=== PATIENT | male | born 1945 | race Caucasian/White ===

== ENCOUNTER 2017-08-01 18:45 | Inpatient (IN) ==
[2017-08-01] MEDS ORDERED: SODIUM CHLORIDE 0.9% 1,000 ML IV STA ×2 (19:04→21:18)
[2017-08-01 20:05] LABS: Basophils % 0.3 % (0.0-0.8); Eosinophils # 0.1 10*3/uL (0.0-0.87); Eosinophils % 0.5 % (0.00-10.9); Hematocrit 48.5 VOL% (42.0-52.0); Hemoglobin 16.3 GM/DL (14.0-18.0); Immature Granulocytes % 0.7 %; Immature Granulocytes Absolute 0.08 #; Lymphocytes # 0.8 10*3/uL (1.4-4.0); Lymphocytes % 6.9 % (21.2-54.2); Mean Corpuscular HGB Conc 33.6 GM/DL (32-36); Mean Corpuscular Hemoglobin 27 PG (27-34); Mean Corpuscular Volume 81.4 FL (87-102); Mean Platelet Volume 12.3 FL (9.6-12.0); Monocytes # 0.8 10*3/uL (0.11-0.8); Monocytes % 7.2 % (1.7-12.7); Neutrophils # 9.5 10*3/uL (1.4-7.4); Neutrophils % 84.4 % (38.7-73.9); Platelet Count 96 T/CUMM (130-400); Red Blood Count 5.96 MC/CUMM (3.8-5.5); Red Cell Distribution Width 14.2 % (9.3-17.3); White Blood Count 11.3 T/CUMM (4-12)
[2017-08-01 20:30] LABS: Platelet Estimate Decreased
[2017-08-01 20:34] LABS: Bilirubin,Total 0.9 MG/DL (0.2-1.0); Calcium 9.4 MG/DL (8.5-10.1); Lactic Acid 1.9 MMOL/L (0.4-2.0); Osmolality,Calculated 281.5 MOS/KG (273-304); Potassium 4.9 MMOL/L (3.5-5.1); Total Protein 7.4 G/DL (6.4-8.3)
[2017-08-01 20:35] LABS: Troponin I Only 0.047 NG/ML (0.00-0.045)
[2017-08-01] MEDS ORDERED: ONDANSETRON 4 MG/2 ML VIAL IV PRN (21:28)
[2017-08-01] MEDS ORDERED: DEXTROSE 50% 25 GM/50 ML VIAL IV PRN (21:28)
[2017-08-01] MEDS ORDERED: GLUCAGON 1 MG VIAL IM PRN (21:28)
[2017-08-01 23:03] LABS: Apearance,Urine CLEAR (Clear); Bacteria,Urine Occasional /HPF (Few); Bilirubin,Urine Negative (Negative); Blood, Urine Moderate mg/dL (Negative); Glucose,Urine (UA) 50 mg/dL (Negative); Hyaline Casts,Urine 2 /LPF (0-3); Ketones,Urine 20 mg/dL (Negative); Mucus,Urine Occasional /LPF (Occasional); Nitrite,Urine Negative (Negative); Protein,Urine 100 MG/DL; RBC,Urine 8 /HPF (0-4); Squamous Epithelial Cell,Urine Occasional /HPF (0-10); Urine Color Yellow (Yellow); Urine Urobilinogen < 2.0 EU/DL (0.2-1.0)
[2017-08-01] MEDS: INSULIN LISPRO 100 UNIT/ML SUBCUT SCH (23:08)
[2017-08-01] MEDS: SODIUM CHLORIDE 0.9% 1,000 ML IV SCH (23:45)
[2017-08-02 01:12] LABS: Basophils % 0.1 % (0.0-0.8); Eosinophils # 0.1 10*3/uL (0.0-0.87); Eosinophils % 1.1 % (0.00-10.9); Hematocrit 43.8 VOL% (42.0-52.0); Hematocrit 45.1 VOL% (42.0-52.0); Hemoglobin 14.6 GM/DL (14.0-18.0); Hemoglobin 14.9 GM/DL (14.0-18.0); Immature Granulocytes % 0.4 %; Immature Granulocytes % 1.5 %; Immature Granulocytes Absolute 0.04 #; Immature Granulocytes Absolute 0.14 #; Lymphocytes # 1.1 10*3/uL (1.4-4.0); Lymphocytes % 11.4 % (21.2-54.2); Mean Corpuscular HGB Conc 33.3 GM/DL (32-36); Mean Corpuscular Hemoglobin 28 PG (27-34); Mean Corpuscular Volume 83.1 FL (87-102); Mean Platelet Volume 11.2 FL (9.6-12.0); Mean Platelet Volume 11.5 FL (9.6-12.0); Monocytes # 0.8 10*3/uL (0.11-0.8); Monocytes # 0.9 10*3/uL (0.11-0.8); Monocytes % 8.8 % (1.7-12.7); Monocytes % 8.9 % (1.7-12.7); Neutrophils # 7.2 10*3/uL (1.4-7.4); Neutrophils # 7.5 10*3/uL (1.4-7.4); Neutrophils % 77.2 % (38.7-73.9); Neutrophils % 78.1 % (38.7-73.9); Platelet Count 132 T/CUMM (130-400); Platelet Count 142 T/CUMM (130-400); Red Blood Count 5.27 MC/CUMM (3.8-5.5); Red Blood Count 5.37 MC/CUMM (3.8-5.5); Red Cell Distribution Width 13.6 % (9.3-17.3); Red Cell Distribution Width 13.8 % (9.3-17.3); White Blood Count 9.2 T/CUMM (4-12); White Blood Count 9.7 T/CUMM (4-12)
[2017-08-02 01:31] LABS: % Iron Saturation 19.7 % (18-50); Ferritin 448.3 ng/ml (26-388)
[2017-08-02 01:46] LABS: Calcium 8.8 MG/DL (8.5-10.1); Osmolality,Calculated 289.7 MOS/KG (273-304); Potassium 4.4 MMOL/L (3.5-5.1); Thyroid Stimulating Hormone 0.692 uIU/ml (0.358-3.74)
[2017-08-02 02:36] LABS: Sedimentation Rate-Westergren 45 MM/HR (0-20)
[2017-08-02 05:01] LABS: Folate 9.7 NG/ML (5.4-24.0); Vitamin B12 714 PG/ML (211-911)
[2017-08-02 05:46] LABS: Hepatitis A Ab IgM Quant 0.18 Index; Hepatitis A Ab IgM Result Negative (Negative); Hepatitis B Core IgM Result Negative (Negative); Hepatitis B Surface Ag Quant < 0.10 Index; Hepatitis B Surface Ag Result Negative (Negative); Hepatitis C Virus Ab Quant 0.15 Index; Hepatitis C Virus Ab Result Negative (Negative)
[2017-08-02] MEDS: INSULIN LISPRO 100 UNIT/ML SUBCUT SCH ×4 (07:11→20:01)
[2017-08-02] MEDS: SODIUM CHLORIDE 0.9% 1,000 ML IV SCH ×2 (07:35→16:34)
[2017-08-02] MEDS: PANTOPRAZOLE 40 MG TABLET PO SCH (08:58)
[2017-08-02] MEDS: hydrALAZINE 20 MG/1 ML VIAL IV PRN (13:09)
[2017-08-02] MEDS: ACETAMINOPHEN 325 MG TABLET PO PRN (14:30)
[2017-08-03 08:25] LABS: Basophils % 0.3 % (0.0-0.8); Eosinophils # 0.3 10*3/uL (0.0-0.87); Eosinophils % 3.8 % (0.00-10.9); Hematocrit 39.4 VOL% (42.0-52.0); Hemoglobin 13.6 GM/DL (14.0-18.0); Immature Granulocytes % 0.8 %; Immature Granulocytes Absolute 0.05 #; Lymphocytes # 1.1 10*3/uL (1.4-4.0); Lymphocytes % 15.8 % (21.2-54.2); Mean Corpuscular HGB Conc 34.5 GM/DL (32-36); Mean Corpuscular Hemoglobin 28 PG (27-34); Mean Corpuscular Volume 81.7 FL (87-102); Mean Platelet Volume 11.6 FL (9.6-12.0); Monocytes # 0.6 10*3/uL (0.11-0.8); Monocytes % 9.6 % (1.7-12.7); Neutrophils # 4.7 10*3/uL (1.4-7.4); Neutrophils % 69.7 % (38.7-73.9); Platelet Count 110 T/CUMM (130-400); Red Blood Count 4.82 MC/CUMM (3.8-5.5); Red Cell Distribution Width 13.7 % (9.3-17.3); White Blood Count 6.7 T/CUMM (4-12)
[2017-08-03] MEDS: INSULIN LISPRO 100 UNIT/ML SUBCUT SCH ×4 (08:42→20:38)
[2017-08-03 09:01] LABS: Calcium 8.2 MG/DL (8.5-10.1); Osmolality,Calculated 281.7 MOS/KG (273-304); Potassium 3.1 MMOL/L (3.5-5.1)
[2017-08-03] MEDS: PANTOPRAZOLE 40 MG TABLET PO SCH (09:06)
[2017-08-03] MEDS: SODIUM CHLORIDE 0.9% 1,000 ML IV SCH (09:10)
[2017-08-03] MEDS: amLODIPine 5 MG TABLET PO SCH (12:30)
[2017-08-03] MEDS ORDERED: TUBERCULIN SKIN TEST 0.1 ML SYRINGE INTRADERM ONE (13:23)
[2017-08-03] MEDS: VANCOMYCIN INJ 1,500 MG in SODIUM CHLORIDE 0.9% 500 ML IV SCH (17:14)
[2017-08-04 06:10] LABS: Basophils % 0.4 % (0.0-0.8); Eosinophils # 0.3 10*3/uL (0.0-0.87); Hematocrit 37.6 VOL% (42.0-52.0); Hemoglobin 12.9 GM/DL (14.0-18.0); Immature Granulocytes % 0.6 %; Immature Granulocytes Absolute 0.04 #; Lymphocytes % 13.8 % (21.2-54.2); Mean Corpuscular HGB Conc 34.3 GM/DL (32-36); Mean Corpuscular Hemoglobin 28 PG (27-34); Monocytes # 0.7 10*3/uL (0.11-0.8); Monocytes % 9.5 % (1.7-12.7); Neutrophils % 71.7 % (38.7-73.9); Platelet Count 102 T/CUMM (130-400); Red Blood Count 4.64 MC/CUMM (3.8-5.5); Red Cell Distribution Width 13.8 % (9.3-17.3)
[2017-08-04 06:20] LABS: Calcium 7.8 MG/DL (8.5-10.1); Osmolality,Calculated 282.5 MOS/KG (273-304); Potassium 2.9 MMOL/L (3.5-5.1)
[2017-08-04] MEDS ORDERED: MAGNESIUM SULF RIDER 4 GM in PREMIX 1 EACH IV PRN (06:26)
[2017-08-04] MEDS ORDERED: MAGNESIUM SULF RIDER 2 GM in PREMIX 1 EACH IV PRN (06:26)
[2017-08-04] MEDS: POTASSIUM CHLORIDE 20 MEQ TABLET PO PRN ×3 (06:37→13:35)
[2017-08-04] MEDS: INSULIN LISPRO 100 UNIT/ML SUBCUT SCH ×4 (07:46→21:11)
[2017-08-04] MEDS: SODIUM CHLORIDE 0.9% 1,000 ML IV SCH (09:00)
[2017-08-04] MEDS: PANTOPRAZOLE 40 MG TABLET PO SCH (09:00)
[2017-08-04] MEDS: amLODIPine 5 MG TABLET PO SCH (09:00)
[2017-08-04] MEDS: ACETAMINOPHEN 325 MG TABLET PO PRN (09:01)
[2017-08-04] MEDS: hydrALAZINE 20 MG/1 ML VIAL IV PRN (13:27)
[2017-08-04] MEDS ORDERED: POTASSIUM CHLORIDE 20 MEQ TABLET PO ONE (14:00)
[2017-08-04] MEDS ORDERED: TUBERCULIN SKIN TEST 0.1 ML SYRINGE INTRADERM ONE (15:30)
[2017-08-04] MEDS: amLODIPine 10 MG TABLET PO SCH (16:00)
[2017-08-04] MEDS: MULTIVITAMIN (CENTRUM) TABLET PO SCH (16:00)
[2017-08-04] MEDS: VANCOMYCIN INJ 1,500 MG in SODIUM CHLORIDE 0.9% 500 ML IV SCH (16:00)
[2017-08-04] MEDS: LISINOPRIL 10 MG TABLET PO SCH (16:00)
[2017-08-04] MEDS: FERROUS SULFATE 325 MG TABLET PO SCH ×2 (16:00→21:10)
[2017-08-04] MEDS: TAMSULOSIN 0.4 MG CAPSULE PO SCH (21:10)
[2017-08-05] MEDS: ACETAMINOPHEN 325 MG TABLET PO PRN (05:03)
[2017-08-05 06:57] LABS: Basophils % 0.3 % (0.0-0.8); Eosinophils # 0.2 10*3/uL (0.0-0.87); Eosinophils % 2.5 % (0.00-10.9); Hematocrit 37.6 VOL% (42.0-52.0); Hemoglobin 12.7 GM/DL (14.0-18.0); Immature Granulocytes % 0.5 %; Immature Granulocytes Absolute 0.03 #; Lymphocytes # 0.7 10*3/uL (1.4-4.0); Lymphocytes % 11.9 % (21.2-54.2); Mean Corpuscular HGB Conc 33.8 GM/DL (32-36); Mean Corpuscular Hemoglobin 28 PG (27-34); Mean Corpuscular Volume 82.5 FL (87-102); Mean Platelet Volume 11.5 FL (9.6-12.0); Monocytes # 0.6 10*3/uL (0.11-0.8); Monocytes % 9.8 % (1.7-12.7); Neutrophils # 4.4 10*3/uL (1.4-7.4); Platelet Count 120 T/CUMM (130-400); Red Blood Count 4.56 MC/CUMM (3.8-5.5); Red Cell Distribution Width 13.8 % (9.3-17.3); White Blood Count 5.9 T/CUMM (4-12)
[2017-08-05 07:27] LABS: Calcium 8.1 MG/DL (8.5-10.1); Osmolality,Calculated 285.7 MOS/KG (273-304)
[2017-08-05] MEDS: INSULIN LISPRO 100 UNIT/ML SUBCUT SCH ×4 (09:04→22:22)
[2017-08-05] MEDS: amLODIPine 10 MG TABLET PO SCH (09:05)
[2017-08-05] MEDS: POTASSIUM CHLORIDE 20 MEQ TABLET PO SCH (09:05)
[2017-08-05] MEDS: MULTIVITAMIN (CENTRUM) TABLET PO SCH (09:05)
[2017-08-05] MEDS: FERROUS SULFATE 325 MG TABLET PO SCH ×2 (09:05→21:01)
[2017-08-05] MEDS: LISINOPRIL 10 MG TABLET PO SCH (09:05)
[2017-08-05] MEDS: TAMSULOSIN 0.4 MG CAPSULE PO SCH ×2 (09:06→21:01)
[2017-08-05] MEDS: PANTOPRAZOLE 40 MG TABLET PO SCH (09:06)
[2017-08-05 10:40] LABS: Hemoglobin A1 (Alkaline) 97.9 % (96.5-98.5); Hemoglobin A2 (Alkaline) 2.1 % (1.5-3.5)
[2017-08-05] MEDS ORDERED: cefTRIAXone 1,000 MG in SYRINGE 1 EACH IV SCH (13:00)
[2017-08-05 19:23] LABS: Folate 7.9 NG/ML (5.4-24.0)
[2017-08-05] MEDS: VANCOMYCIN INJ 1,500 MG in SODIUM CHLORIDE 0.9% 500 ML IV SCH (21:00)
[2017-08-05] MEDS: MEMANTINE 5 MG TABLET PO SCH (21:01)
[2017-08-06 07:22] LABS: Basophils % 0.5 % (0.0-0.8); Eosinophils # 0.2 10*3/uL (0.0-0.87); Eosinophils % 2.9 % (0.00-10.9); Hematocrit 38.8 VOL% (42.0-52.0); Hemoglobin 12.9 GM/DL (14.0-18.0); Immature Granulocytes % 0.7 %; Immature Granulocytes Absolute 0.04 #; Lymphocytes # 1.1 10*3/uL (1.4-4.0); Lymphocytes % 17.5 % (21.2-54.2); Mean Corpuscular HGB Conc 33.2 GM/DL (32-36); Mean Corpuscular Hemoglobin 28 PG (27-34); Mean Corpuscular Volume 83.1 FL (87-102); Monocytes # 0.6 10*3/uL (0.11-0.8); Monocytes % 10.3 % (1.7-12.7); Neutrophils # 4.2 10*3/uL (1.4-7.4); Neutrophils % 68.1 % (38.7-73.9); Platelet Count 133 T/CUMM (130-400); Red Blood Count 4.67 MC/CUMM (3.8-5.5); Red Cell Distribution Width 14.3 % (9.3-17.3); White Blood Count 6.1 T/CUMM (4-12)
[2017-08-06] MEDS: TAMSULOSIN 0.4 MG CAPSULE PO SCH ×2 (08:58→20:40)
[2017-08-06] MEDS: ASPIRIN EC 81 MG TABLET PO SCH (08:58)
[2017-08-06] MEDS: amLODIPine 10 MG TABLET PO SCH (08:59)
[2017-08-06] MEDS: PANTOPRAZOLE 40 MG TABLET PO SCH (08:59)
[2017-08-06] MEDS: LISINOPRIL 10 MG TABLET PO SCH (08:59)
[2017-08-06] MEDS: INSULIN LISPRO 100 UNIT/ML SUBCUT SCH ×4 (08:59→20:44)
[2017-08-06] MEDS: MEMANTINE 5 MG TABLET PO SCH ×2 (08:59→20:40)
[2017-08-06] MEDS: FERROUS SULFATE 325 MG TABLET PO SCH ×2 (08:59→20:40)
[2017-08-06] MEDS: MULTIVITAMIN (CENTRUM) TABLET PO SCH (08:59)
[2017-08-06] MEDS: POTASSIUM CHLORIDE 20 MEQ TABLET PO SCH (08:59)
[2017-08-06] MEDS: metFORMIN 500 MG TABLET PO SCH (10:35)
[2017-08-06] MEDS ORDERED: glyBURIDE 2.5 MG TABLET PO SCH (17:00)
[2017-08-06] MEDS: VANCOMYCIN INJ 1,500 MG in SODIUM CHLORIDE 0.9% 500 ML IV SCH (20:41)
[2017-08-07] MEDS: amLODIPine 10 MG TABLET PO SCH (09:45)
[2017-08-07] MEDS: ASPIRIN EC 81 MG TABLET PO SCH (09:45)
[2017-08-07] MEDS: MULTIVITAMIN (CENTRUM) TABLET PO SCH (09:45)
[2017-08-07] MEDS: metFORMIN 500 MG TABLET PO SCH (09:45)
[2017-08-07] MEDS: MEMANTINE 5 MG TABLET PO SCH ×2 (09:45→20:31)
[2017-08-07] MEDS: PANTOPRAZOLE 40 MG TABLET PO SCH (09:45)
[2017-08-07] MEDS: TAMSULOSIN 0.4 MG CAPSULE PO SCH ×2 (09:45→20:31)
[2017-08-07] MEDS: LISINOPRIL 10 MG TABLET PO SCH (09:46)
[2017-08-07] MEDS: FERROUS SULFATE 325 MG TABLET PO SCH ×2 (09:46→20:31)
[2017-08-07] MEDS: POTASSIUM CHLORIDE 20 MEQ TABLET PO SCH (09:46)
[2017-08-07] MEDS: INSULIN LISPRO 100 UNIT/ML SUBCUT SCH ×4 (09:46→20:31)
[2017-08-07] MEDS ORDERED: SKIN HEALING OINT (AQUAPHOR) 50 GM TUBE TOP PRN (15:39)
[2017-08-07] MEDS: VANCOMYCIN INJ 1,500 MG in SODIUM CHLORIDE 0.9% 500 ML IV SCH (20:31)
[2017-08-08] MEDS: MEMANTINE 5 MG TABLET PO SCH (09:11)
[2017-08-08] MEDS: MULTIVITAMIN (CENTRUM) TABLET PO SCH (09:11)
[2017-08-08] MEDS: TAMSULOSIN 0.4 MG CAPSULE PO SCH (09:11)
[2017-08-08] MEDS: amLODIPine 10 MG TABLET PO SCH (09:11)
[2017-08-08] MEDS: LISINOPRIL 10 MG TABLET PO SCH (09:11)
[2017-08-08] MEDS: PANTOPRAZOLE 40 MG TABLET PO SCH (09:11)
[2017-08-08] MEDS: ACETAMINOPHEN 325 MG TABLET PO PRN (09:12)
[2017-08-08] MEDS: POTASSIUM CHLORIDE 20 MEQ TABLET PO SCH (09:12)
[2017-08-08] MEDS: metFORMIN 500 MG TABLET PO SCH (09:12)
[2017-08-08] MEDS: FERROUS SULFATE 325 MG TABLET PO SCH (09:12)
[2017-08-08] MEDS: INSULIN LISPRO 100 UNIT/ML SUBCUT SCH ×2 (09:13→12:02)
[2017-08-08] MEDS: ASPIRIN EC 81 MG TABLET PO SCH (09:13)
[2017-08-08 12:04] VITALS: BP 172/96
== END 2017-08-08 12:15 | DRG 683 ==
LOC: EDUNIT# → EDBD → N.ED 18:45 → N.EDINP 21:27 → SUATTDRO 21:27 → N.5E 23:06
PROVIDERS: ADMIT Internal Medicine; ATTEND Internal Medicine Infectious Disease

== ENCOUNTER 2017-10-27 10:11 | Inpatient (IN) ==
[2017-10-27] MEDS ORDERED: CLINDAMYCIN INJ 600 MG in PREMIX 1 EACH IV STA (10:40)
[2017-10-27] MEDS ORDERED: SODIUM CHLORIDE 0.9% 500 ML IV STA (10:40)
[2017-10-27 10:47] LABS: Basophils # 0.1 10*3/uL (0.0-0.2); Basophils % 0.8 % (0.0-0.8); Eosinophils # 0.3 10*3/uL (0.0-0.87); Hematocrit 26.7 VOL% (42.0-52.0); Hemoglobin 8.7 GM/DL (14.0-18.0); Immature Granulocytes % 0.8 %; Immature Granulocytes Absolute 0.05 #; Lymphocytes # 0.9 10*3/uL (1.4-4.0); Lymphocytes % 15.3 % (21.2-54.2); Mean Corpuscular HGB Conc 32.6 GM/DL (32-36); Mean Corpuscular Hemoglobin 27 PG (27-34); Mean Corpuscular Volume 84.2 FL (87-102); Mean Platelet Volume 9.6 FL (9.6-12.0); Monocytes # 0.7 10*3/uL (0.11-0.8); Neutrophils % 67.1 % (38.7-73.9); Platelet Count 244 T/CUMM (130-400); Red Blood Count 3.17 MC/CUMM (3.8-5.5); Red Cell Distribution Width 14.3 % (9.3-17.3)
[2017-10-27 11:08] LABS: Lactic Acid 0.9 MMOL/L (0.4-2.0)
[2017-10-27 11:21] LABS: Alanine Aminotransferase 17 U/L (16-61); Alkaline Phosphatase 69 U/L (45-117); Aspartate Amino Transferase 13 U/L (0-37); Bilirubin,Total < 0.39 MG/DL (0.2-1.0); Total Protein 6.7 G/DL (6.4-8.3)
[2017-10-27 11:22] LABS: Blood Urea Nitrogen 49 MG/DL (7-18); Glucose 315 MG/DL (74-106); Osmolality,Calculated 288.5 MOS/KG (273-304); Potassium 3.5 MMOL/L (3.5-5.1); Sodium 132 MMOL/L (136-145)
[2017-10-27] MEDS ORDERED: cefTRIAXone 250 MG VIAL IM STA (11:44)
[2017-10-27] MEDS ORDERED: NICOTINE 21 MG/24 HR PATCH TRANSDERM PRN (12:00)
[2017-10-27] MEDS ORDERED: BISACODYL 5 MG TABLET PO PRN (12:00)
[2017-10-27] MEDS ORDERED: ONDANSETRON 4 MG/2 ML VIAL IV PRN (12:00)
[2017-10-27] MEDS ORDERED: PROMETHAZINE 25 MG/1 ML VIAL IM PRN (12:00)
[2017-10-27] MEDS ORDERED: GLUCAGON 1 MG VIAL IM PRN (12:04)
[2017-10-27] MEDS ORDERED: DEXTROSE 50% 25 GM/50 ML VIAL IV PRN (12:04)
[2017-10-27] MEDS ORDERED: ALBUTEROL 2.5 MG/3 ML NEB RESP TX PRN (12:05)
[2017-10-27 12:06] LABS: Amorphous Crystals,Urine Occasional /HPF (Few); Apearance,Urine Slightly Hazy (Clear); Bilirubin,Urine Negative (Negative); Blood, Urine Moderate mg/dL (Negative); Glucose,Urine (UA) >=500 mg/dL (Negative); Ketones,Urine Negative (Negative); Nitrite,Urine Negative (Negative); Protein,Urine >=500 MG/DL; RBC,Urine 23 /HPF (0-4); Urine Color Yellow (Yellow); Urine Specific Gravity 1.005 (1.001-1.035); Urine Urobilinogen < 2.0 EU/DL (0.2-1.0)
[2017-10-27] MEDS ORDERED: cefTRIAXone 1,000 MG in SODIUM CHLORIDE 0.9% 100 ML IV STA (12:07)
[2017-10-27] MEDS ORDERED: hydrALAZINE 20 MG/1 ML VIAL IV STA (12:22)
[2017-10-27] MEDS: ALBUTEROL/IPRATROPIUM 3 ML NEB RESP TX SCH ×2 (13:31→19:27)
[2017-10-27] MEDS ORDERED: VANCOMYCIN INJ 1,500 MG in SODIUM CHLORIDE 0.9% 500 ML IV PRN (13:34)
[2017-10-27] MEDS: SODIUM CHLORIDE 0.9% 1,000 ML IV SCH ×2 (13:57→20:30)
[2017-10-27] MEDS: PIPERACILLIN/TAZOBACTAM 3,375 MG in SODIUM CHLORIDE 0.9% 100 ML IV SCH ×2 (14:00→22:39)
[2017-10-27] MEDS: ENOXAPARIN 30 MG/0.3 ML SYRINGE SUBCUT SCH (14:00)
[2017-10-27] MEDS: INSULIN REGULAR 100 UNIT/ML SUBCUT SCH ×2 (15:49→21:31)
[2017-10-27] MEDS ORDERED: hydrALAZINE 20 MG/1 ML VIAL IV PRN (16:14)
[2017-10-27 16:31] LABS: Folate 10.3 NG/ML (5.4-24.0)
[2017-10-27] MEDS ORDERED: VANCOMYCIN INJ 2,250 MG in SODIUM CHLORIDE 0.9% 500 ML IV ONE (18:00)
[2017-10-27 18:05] LABS: Protein/Creatinine Ratio,Urine 9.8 RATIO
[2017-10-27] MEDS ORDERED: INSULIN GLARGINE 100 UNIT/ML SUBCUT SCH (21:00)
[2017-10-27] MEDS: amLODIPine 5 MG TABLET PO SCH (21:19)
[2017-10-27] MEDS: guaiFENesin/DM ER 600-30 MG TABLET PO SCH (21:19)
[2017-10-27] MEDS: INSULIN GLARGINE 100 UNIT/ML SUBCUT SCH (21:32)
[2017-10-28] MEDS: ALBUTEROL/IPRATROPIUM 3 ML NEB RESP TX SCH ×4 (01:29→19:23)
[2017-10-28] MEDS: PIPERACILLIN/TAZOBACTAM 3,375 MG in SODIUM CHLORIDE 0.9% 100 ML IV SCH ×3 (06:16→22:14)
[2017-10-28 07:30] LABS: Basophils # 0.1 10*3/uL (0.0-0.2); Basophils % 0.7 % (0.0-0.8); Eosinophils # 0.3 10*3/uL (0.0-0.87); Eosinophils % 4.5 % (0.00-10.9); Hematocrit 26.4 VOL% (42.0-52.0); Hemoglobin 8.6 GM/DL (14.0-18.0); Immature Granulocytes % 0.4 %; Immature Granulocytes Absolute 0.03 #; Lymphocytes # 0.9 10*3/uL (1.4-4.0); Lymphocytes % 13.8 % (21.2-54.2); Mean Corpuscular HGB Conc 32.6 GM/DL (32-36); Mean Corpuscular Hemoglobin 28 PG (27-34); Mean Corpuscular Volume 84.6 FL (87-102); Mean Platelet Volume 9.6 FL (9.6-12.0); Monocytes # 0.4 10*3/uL (0.11-0.8); Monocytes % 6.4 % (1.7-12.7); Neutrophils % 74.2 % (38.7-73.9); Platelet Count 257 T/CUMM (130-400); Red Blood Count 3.12 MC/CUMM (3.8-5.5); Red Cell Distribution Width 14.5 % (9.3-17.3); White Blood Count 6.7 T/CUMM (4-12)
[2017-10-28 07:58] LABS: % Iron Saturation 13.2 % (18-50); Ferritin 183.4 ng/ml (26-388)
[2017-10-28 08:03] LABS: Alanine Aminotransferase 15 U/L (16-61); Alkaline Phosphatase 60 U/L (45-117); Aspartate Amino Transferase 12 U/L (0-37); Bilirubin,Total < 0.39 MG/DL (0.2-1.0); Blood Urea Nitrogen 48 MG/DL (7-18); Calcium 8.1 MG/DL (8.5-10.1); Cholesterol 130 MG/DL (50-200); Glucose 249 MG/DL (74-106); HDL Cholesterol 46 MG/DL (40-60); Osmolality,Calculated 290.1 MOS/KG (273-304); Potassium 4.1 MMOL/L (3.5-5.1); Risk Ratio 2.83; Sodium 135 MMOL/L (136-145); Total Protein 6.7 G/DL (6.4-8.3); Triglycerides 70 MG/DL (2-150)
[2017-10-28] MEDS: guaiFENesin/DM ER 600-30 MG TABLET PO SCH ×2 (09:21→22:15)
[2017-10-28] MEDS: hydrALAZINE 25 MG TABLET PO SCH ×2 (09:21→22:16)
[2017-10-28] MEDS: FUROSEMIDE 40 MG TABLET PO SCH (09:21)
[2017-10-28] MEDS: amLODIPine 5 MG TABLET PO SCH ×2 (09:21→22:15)
[2017-10-28] MEDS: INSULIN REGULAR 100 UNIT/ML SUBCUT SCH ×4 (09:22→22:10)
[2017-10-28] MEDS: INSULIN GLARGINE 100 UNIT/ML SUBCUT SCH ×2 (09:22→22:23)
[2017-10-28] MEDS: ENOXAPARIN 30 MG/0.3 ML SYRINGE SUBCUT SCH (11:36)
[2017-10-28] MEDS: SODIUM CHLORIDE 0.9% 1,000 ML IV SCH (12:31)
[2017-10-28] MEDS ORDERED: INSULIN GLARGINE 100 UNIT/ML SUBCUT SCH (21:00)
[2017-10-28] MEDS: TAMSULOSIN 0.4 MG CAPSULE PO SCH (22:15)
[2017-10-29] MEDS: ALBUTEROL/IPRATROPIUM 3 ML NEB RESP TX SCH ×5 (01:02→19:25)
[2017-10-29] MEDS: PIPERACILLIN/TAZOBACTAM 3,375 MG in SODIUM CHLORIDE 0.9% 100 ML IV SCH ×3 (05:06→20:28)
[2017-10-29 06:04] LABS: Basophils # 0.1 10*3/uL (0.0-0.2); Eosinophils # 0.3 10*3/uL (0.0-0.87); Eosinophils % 4.9 % (0.00-10.9); Hematocrit 27.5 VOL% (42.0-52.0); Hemoglobin 8.6 GM/DL (14.0-18.0); Immature Granulocytes % 0.3 %; Immature Granulocytes Absolute 0.02 #; Lymphocytes # 0.9 10*3/uL (1.4-4.0); Lymphocytes % 14.6 % (21.2-54.2); Mean Corpuscular HGB Conc 31.3 GM/DL (32-36); Mean Corpuscular Hemoglobin 27 PG (27-34); Mean Corpuscular Volume 85.7 FL (87-102); Mean Platelet Volume 9.6 FL (9.6-12.0); Monocytes # 0.4 10*3/uL (0.11-0.8); Monocytes % 6.7 % (1.7-12.7); Neutrophils # 4.4 10*3/uL (1.4-7.4); Neutrophils % 72.5 % (38.7-73.9); Platelet Count 258 T/CUMM (130-400); Red Blood Count 3.21 MC/CUMM (3.8-5.5); Red Cell Distribution Width 14.9 % (9.3-17.3); White Blood Count 6.1 T/CUMM (4-12)
[2017-10-29 06:36] LABS: Alanine Aminotransferase 15 U/L (16-61); Albumin 2.1 G/DL (3.4-5.0); Alkaline Phosphatase 58 U/L (45-117); Aspartate Amino Transferase 14 U/L (0-37); Bilirubin,Total < 0.39 MG/DL (0.2-1.0); Blood Urea Nitrogen 55 MG/DL (7-18); Calcium 8.4 MG/DL (8.5-10.1); Glucose 74 MG/DL (74-106); Potassium 4.1 MMOL/L (3.5-5.1); Sodium 136 MMOL/L (136-145)
[2017-10-29 06:44] LABS: Calcium 8.2 MG/DL (8.5-10.1); Osmolality,Calculated 288.5 MOS/KG (273-304); Potassium 4.1 MMOL/L (3.5-5.1)
[2017-10-29] MEDS: INSULIN REGULAR 100 UNIT/ML SUBCUT SCH ×4 (08:27→21:19)
[2017-10-29] MEDS: hydrALAZINE 25 MG TABLET PO SCH ×2 (09:16→20:33)
[2017-10-29] MEDS: FUROSEMIDE 40 MG TABLET PO SCH (09:16)
[2017-10-29] MEDS: amLODIPine 5 MG TABLET PO SCH (09:16)
[2017-10-29] MEDS: TAMSULOSIN 0.4 MG CAPSULE PO SCH ×2 (09:16→20:33)
[2017-10-29] MEDS: guaiFENesin/DM ER 600-30 MG TABLET PO SCH ×2 (09:16→20:33)
[2017-10-29] MEDS: INSULIN GLARGINE 100 UNIT/ML SUBCUT SCH ×2 (09:22→21:20)
[2017-10-29] MEDS: ACETAMINOPHEN 325 MG TABLET PO PRN ×2 (10:42→19:37)
[2017-10-29] MEDS: DORNASE ALFA 2.5 MG/2.5 ML VIAL RESP TX SCH ×2 (12:41→19:27)
[2017-10-29] MEDS: ENOXAPARIN 30 MG/0.3 ML SYRINGE SUBCUT SCH (13:08)
[2017-10-29] MEDS: FUROSEMIDE 80 MG TABLET PO SCH (18:04)
[2017-10-30] MEDS: ALBUTEROL/IPRATROPIUM 3 ML NEB RESP TX SCH ×4 (01:06→19:11)
[2017-10-30] MEDS: PIPERACILLIN/TAZOBACTAM 3,375 MG in SODIUM CHLORIDE 0.9% 100 ML IV SCH ×3 (04:49→20:54)
[2017-10-30] MEDS: DORNASE ALFA 2.5 MG/2.5 ML VIAL RESP TX SCH ×2 (07:35→19:11)
[2017-10-30] MEDS: INSULIN REGULAR 100 UNIT/ML SUBCUT SCH ×4 (07:36→21:31)
[2017-10-30] MEDS: TAMSULOSIN 0.4 MG CAPSULE PO SCH ×2 (09:14→20:59)
[2017-10-30] MEDS: guaiFENesin/DM ER 600-30 MG TABLET PO SCH ×2 (09:14→20:59)
[2017-10-30] MEDS: hydrALAZINE 25 MG TABLET PO SCH ×2 (09:14→20:59)
[2017-10-30] MEDS: FUROSEMIDE 80 MG TABLET PO SCH ×2 (09:14→16:34)
[2017-10-30] MEDS: amLODIPine 5 MG TABLET PO SCH (09:14)
[2017-10-30] MEDS: INSULIN GLARGINE 100 UNIT/ML SUBCUT SCH ×2 (09:17→21:32)
[2017-10-30] MEDS: ENOXAPARIN 30 MG/0.3 ML SYRINGE SUBCUT SCH (09:19)
[2017-10-30] MEDS ORDERED: SKIN HEALING OINT (AQUAPHOR) 50 GM TUBE TOP PRN (14:17)
[2017-10-31] MEDS: ALBUTEROL/IPRATROPIUM 3 ML NEB RESP TX SCH ×2 (00:29→07:20)
[2017-10-31] MEDS ORDERED: QUEtiapine 25 MG TABLET PO PRN (01:42)
[2017-10-31 04:52] LABS: Calcium 8.2 MG/DL (8.5-10.1); Osmolality,Calculated 290.4 MOS/KG (273-304); Potassium 3.8 MMOL/L (3.5-5.1)
[2017-10-31] MEDS: PIPERACILLIN/TAZOBACTAM 3,375 MG in SODIUM CHLORIDE 0.9% 100 ML IV SCH (05:18)
[2017-10-31] MEDS: DORNASE ALFA 2.5 MG/2.5 ML VIAL RESP TX SCH (07:25)
[2017-10-31] MEDS: FUROSEMIDE 80 MG TABLET PO SCH (08:55)
[2017-10-31] MEDS: TAMSULOSIN 0.4 MG CAPSULE PO SCH (08:55)
[2017-10-31] MEDS: guaiFENesin/DM ER 600-30 MG TABLET PO SCH (08:55)
[2017-10-31] MEDS: hydrALAZINE 25 MG TABLET PO SCH (08:55)
[2017-10-31] MEDS: INSULIN GLARGINE 100 UNIT/ML SUBCUT SCH (08:56)
[2017-10-31] MEDS: amLODIPine 5 MG TABLET PO SCH (08:56)
[2017-10-31] MEDS: ENOXAPARIN 30 MG/0.3 ML SYRINGE SUBCUT SCH (08:56)
[2017-10-31] MEDS: INSULIN REGULAR 100 UNIT/ML SUBCUT SCH ×2 (09:10→11:45)
[2017-10-31] MEDS ORDERED: TUBERCULIN SKIN TEST 0.1 ML SYRINGE INTRADERM ONE (09:30)
[2017-10-31 12:02] VITALS: BP 151/81
== END 2017-10-31 13:45 | DRG 602 ==
LOC: EDBD → EDUNIT# → N.ED 10:11 → SUATTDRO 12:00 → N.EDINP 12:00 → N.2E 13:24
PROVIDERS: ADMIT Internal Medicine; ATTEND Hospitalist